=== PATIENT | male | born 2000 | race Caucasian/White ===

== ENCOUNTER 2022-07-26 19:31 | Emergency (ER) | payer BC ==
[~2022-07-26] VITALS: Ht 175.3 cm; Wt 74.8 kg
[2022-07-26 19:40] VITALS: BP 142/84
--- NOTE | 2022-07-26 20:17 | NUR ---
XRAY DONE AT BEDSIDE.
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
== END 2022-07-26 22:00 | disposition left against medical advice (07) ==
LOC: ER 19:31
DX: M25.531 Pain in right wrist (principal); Z53.21 Procedure and treatment not carried out due to patient leaving prior to being seen by health care provider
CPT/HCPCS: 73110; 73130-TC